=== PATIENT | female | born 1965 | race Caucasian/White ===

== ENCOUNTER → 2016-05-20 14:29 | Outpatient (CLI) | payer BC ==
[2014-01-01 11:58] VITALS: BMI 49.7
[~2016-05-20 14:29] MED LIST: ACETAMINOPHEN325 MG NG; ADVIL200 MG PO; BUSPAR 15 MG TA15 MG PO; COLACE100 MG PO; LEVAQUIN750 MG PO; LEVOXYL100 MCG PO; MVI CV; PRINIVIL20 MG PO; ZERTEC
== END | disposition home or self-care (01) ==
LOC: D.MAMMO 09:30
DX: Z12.31 Encounter for screening mammogram for malignant neoplasm of breast (principal)

== ENCOUNTER 2018-10-02 09:00 | Outpatient (CLI) | payer BC ==
[2014-01-01 11:58] VITALS: BMI 49.7
== END 2018-10-02 09:30 | disposition home or self-care (01) ==
LOC: D.MAMMO 09:00
PROVIDERS: ATTEND Family Medicine Adult Medicine
DX: Z12.31 Encounter for screening mammogram for malignant neoplasm of breast (principal)